=== PATIENT | female | born 1950 | race Hispanic/Latino ===

== ENCOUNTER 2023-08-03 15:40 | Observation (INO) | payer OTHER, MEDICARE ==
[~2023-08-03] VITALS: Ht 157.5 cm; Wt 70.8 kg
[2023-08-03 18:01] LABS: BASOPHILS # (AUTO) 0.01 K/uL (0.00-0.20); BASOPHILS % (AUTO) 0.1 % (0.0-5.0); EOSINOPHILS # (AUTO) 0.04 K/uL (0.00-0.70); EOSINOPHILS % (AUTO) 0.5 % (0.0-8.0); HEMATOCRIT 41.7 % (36-48); IMMATURE GRANULOCYTE ABSOLUTE 0.02 K/uL (0-1); LYMPHOCYTES # (AUTO) 1.1 K/uL (1.0-4.8); LYMPHOCYTES % (AUTO) 15.3 % (21.0-51.0); MEAN CORPUSCULAR HEMOGLOBIN 29.1 pg (27.0-33.0); MEAN CORPUSCULAR HGB CONC 33.3 g/dL (32.0-36.0); MEAN CORPUSCULAR VOLUME 87.2 fL (79-99); MONOCYTES # (AUTO) 0.4 K/uL (0.1-1.0); MONOCYTES % (AUTO) 5.9 % (3.0-13.0); NEUTROPHILS # (AUTO) 5.8 K/uL (1.8-7.7); NEUTROPHILS % (AUTO) 77.9 % (40.0-77.0); PLATELET COUNT (AUTO) 186 K/uL (130-400); RED BLOOD CELL COUNT(AUTO) 4.78 MIL/uL (4.00-5.50); RED CELL DISTRIBUTION WIDTH 13.1 % (11.0-15.5); WHITE BLOOD COUNT (AUTO) 7.5 K/uL (4.8-10.8)
[2023-08-03 18:18] LABS: CREATININE 0.6 mg/dL (0.5-1.5); POTASSIUM 3.4 mmol/L (3.5-5.1)
[2023-08-03 18:22] LABS: ALBUMIN 3.3 g/dL (3.5-5.0); BILIRUBIN,TOTAL 0.7 mg/dL (0.2-1.0)
[2023-08-03] MEDS ORDERED: FAMOTIDINE 20MG VIAL IV ONE (20:00)
[2023-08-03] MEDS ORDERED: DiphenhydrAMINE HCL 50 MG/ML VIAL IV ONE (20:00)
[2023-08-03] MEDS ORDERED: SOLU-MEDROL 125MG VIAL IVP ONE (20:00)
[2023-08-03] MEDS ORDERED: IPRATROPIUM/ALBUTEROL SULFATE 3 ML SOLUTION IH ONE (20:00)
[2023-08-03 20:11] LABS: ALBUMIN 3.3 g/dL (3.5-5.0); BILIRUBIN,DIRECT 0.2 mg/dL (0.0-0.3); BILIRUBIN,TOTAL 0.7 mg/dL (0.2-1.0)
[2023-08-03 20:25] VITALS: PULSE 100; RESP 16
[2023-08-04] MEDS ORDERED: MAGNESIUM 2GM PREMIX 50ML 50 ML IV PRN
[2023-08-04] MEDS ORDERED: POTASSIUM CHLORIDE 20MEQ/100ML 100 ML IV PRN
[2023-08-04] MEDS ORDERED: DIPHENHYDRAMINE HCL 25 MG CAPSULE PO PRN
[2023-08-04] MEDS ORDERED: ONDANSETRON 4MG INJ IV PRN
[2023-08-04] MEDS ORDERED: ACETAMINOPHEN 325 MG TAB PO PRN ×2
[2023-08-04] MEDS ORDERED: KCL 20 MEQ ERTAB PO PRN
[2023-08-04] MEDS ORDERED: POTASSIUM CHLORIDE 10% ELIXIR 20 MEQ/15 ML UDCUP PO PRN
[2023-08-04] MEDS: 0.9%NACL 1000ML 1,000 ML IV SCH ×2 (00:37→13:20)
[2023-08-04] MEDS ORDERED: ALBUTEROL 0.083% 2.5 MG/3 ML INH IH PRN (07:30)
[2023-08-04 07:41] LABS: BASOPHILS # (AUTO) 0.01 K/uL (0.00-0.20); BASOPHILS % (AUTO) 0.2 % (0.0-5.0); HEMATOCRIT 38.7 % (36-48); IMMATURE GRANULOCYTE ABSOLUTE 0.03 K/uL (0-1); LYMPHOCYTES # (AUTO) 0.7 K/uL (1.0-4.8); LYMPHOCYTES % (AUTO) 14.3 % (21.0-51.0); MEAN CORPUSCULAR HEMOGLOBIN 29.3 pg (27.0-33.0); MEAN CORPUSCULAR HGB CONC 33.6 g/dL (32.0-36.0); MEAN CORPUSCULAR VOLUME 87.4 fL (79-99); MONOCYTES # (AUTO) 0.1 K/uL (0.1-1.0); MONOCYTES % (AUTO) 1.5 % (3.0-13.0); NEUTROPHILS # (AUTO) 3.8 K/uL (1.8-7.7); NEUTROPHILS % (AUTO) 83.3 % (40.0-77.0); PLATELET COUNT (AUTO) 171 K/uL (130-400); RED BLOOD CELL COUNT(AUTO) 4.43 MIL/uL (4.00-5.50); RED CELL DISTRIBUTION WIDTH 13.1 % (11.0-15.5); WHITE BLOOD COUNT (AUTO) 4.6 K/uL (4.8-10.8)
[2023-08-04 08:34] LABS: ALBUMIN 3.1 g/dL (3.5-5.0); CREATININE 0.7 mg/dL (0.5-1.5); MAGNESIUM 1.9 mg/dL (1.80-2.40); POTASSIUM 3.8 mmol/L (3.5-5.1); TOTAL PROTEIN, SERUM 5.9 g/dL (6.0-8.3)
[2023-08-04 08:37] LABS: HEMOGLOBIN A1C 5.8 % (4.0-6.0)
[2023-08-04 09:07] LABS: ERYTHROCYTE SEDIMENTATION RATE 5 MM/HR (0-30)
[2023-08-04] MEDS: FAMOTIDINE 20MG VIAL IV SCH ×2 (09:48→22:32)
[2023-08-04] MEDS: SOLU-MEDROL 40MG VIAL IVP SCH ×2 (09:48→22:32)
[2023-08-04 13:21] LABS: BILIRUBIN,TOTAL 0.4 mg/dL (0.2-1.0)
[2023-08-04] MEDS ORDERED: ERGO500093 PO (14:13)
[2023-08-04] MEDS ORDERED: FAMO40TA7 PO (14:13)
[2023-08-04] MEDS ORDERED: TERB250T89 PO (14:13)
[2023-08-04] MEDS ORDERED: LORA10TA7 PO (14:13)
[2023-08-04] MEDS ORDERED: CITA-107 PO (14:13)
[2023-08-04] MEDS ORDERED: LEVO125C4 PO (14:13)
[2023-08-04] MEDS ORDERED: TRAM50TA4 PO (14:13)
[2023-08-04] MEDS ORDERED: ATOR40TA69 PO (14:13)
[2023-08-04 15:00] VITALS: BP 125/60; PULSE 79; RESP 19
[2023-08-04] MEDS ORDERED: LORATADINE 10 MG TABLET PO SCH (15:30)
[2023-08-04 20:00] VITALS: BP 160/77; PULSE 77; RESP 20; O2SAT 96
[2023-08-04] MEDS ORDERED: CITALOPRAM 20 MG TABLET PO SCH (21:00)
[2023-08-04] MEDS ORDERED: ATORVASTATIN 40 MG TABLET PO SCH (21:00)
[2023-08-04] MEDS ORDERED: 0.9%NACL 1000ML 1,000 ML IV SCH (21:00)
[2023-08-04] MEDS ORDERED: CEFTRIAXONE 1G VIAL IVPB SCH (21:00)
[2023-08-05] VITALS: BP 119/58; PULSE 67; RESP 18
[2023-08-05 04:00] VITALS: BP 128/74; PULSE 65; RESP 18
[2023-08-05 07:25] VITALS: PULSE 75; RESP 18; O2SAT 95
[2023-08-05] MEDS ORDERED: LEVOTHYROXINE 125 MCG TABLET PO SCH (07:30)
[2023-08-05] MEDS: SOLU-MEDROL 40MG VIAL IVP SCH (08:54)
[2023-08-05] MEDS: FAMOTIDINE 20MG VIAL IV SCH (08:54)
[2023-08-05] MEDS ORDERED: LORATADINE 10 MG TABLET PO SCH (09:00)
[2023-08-05] MEDS ORDERED: CEFU500T67 PO (10:38)
== END 2023-08-05 11:30 | disposition home or self-care (01) ==
LOC: EDH 15:40 → EDHIP 23:40 → 3BH 08-04 15:33
PROVIDERS: ADMIT Hospitalist; ATTEND Hospitalist
DX: T78.40XA Allergy, unspecified, initial encounter (principal); L29.9 Pruritus, unspecified; J02.0 Streptococcal pharyngitis; E87.6 Hypokalemia; J02.9 Acute pharyngitis, unspecified; E66.01 Morbid (severe) obesity due to excess calories; E78.5 Hyperlipidemia, unspecified; E03.9 Hypothyroidism, unspecified; R11.2 Nausea with vomiting, unspecified; R06.02 Shortness of breath; R07.9 Chest pain, unspecified; J45.909 Unspecified asthma, uncomplicated; E11.9 Type 2 diabetes mellitus without complications; I10 Essential (primary) hypertension; F41.9 Anxiety disorder, unspecified; M19.90 Unspecified osteoarthritis, unspecified site; Z68.28 Body mass index [BMI] 28.0-28.9, adult; X58.XXXA Exposure to other specified factors, initial encounter
CPT/HCPCS: 80076; 96374; 96375; 99285; 82550; 84484 ×3; 80053 ×2; 83880; 85025 ×2; 36415 ×3; 71045; 93005; 94640; 96376 ×2; 96361 ×2; 83036; 83735; 85651; 87880; 86160 ×2; G0378 ×36; J1200; J3490 ×4; J2930; J0696; J2920 ×3